=== PATIENT | female | born 1960 | race Two or more races ===

== ENCOUNTER → 2020-07-03 | Outpatient (CLI) | payer BC ==
[~2020-07-03] MED LIST: CHOL10003 PO; COLE625T12 PO; ENOX40SY4 SQ; LEVO88TA4 PO; METO25TA35 PO; OMEP-110 PO; WARF2TAB99 PO
[2020-07-03 12:07] LABS: BASOPHILS % (AUTO) 1 % (0-1); EOSINOPHILS % (AUTO) 0 % (1-7); LYMPHOCYTES % (AUTO) 13 % (22-44); MEAN CORPUSCULAR HEMOGLOBIN 28.8 pg (27.0-34.8); MEAN CORPUSCULAR HGB CONC 32.2 g/dL (32.4-35.8); MEAN PLATELET VOLUME 8.7 fL (7.4-10.4); MONOCYTES % (AUTO) 6 % (2-9); NEUTROPHILS % (AUTO) 81 % (42-75); PLATELET COUNT 384 x10^3/uL (130-400); RED BLOOD COUNT 3.59 x10^6/uL (3.82-5.3); RED CELL DISTRIBUTION WIDTH 15.1 % (9.6-15.2)
[2020-07-03 12:09] LABS: INTERNATIONAL NORMALIZED RATIO 1.87 (0.93-1.1); PROTHROMBIN TIME 19.8 Seconds (9.6-11.5)
[2020-07-03 12:11] LABS: ALANINE AMINOTRANSFERASE 11 U/L (12-78); ALBUMIN 2.3 g/dL (3.4-5.0); ANION GAP 4 mmol/L (5-15); CALCIUM 8.1 mg/dL (8.5-10.1); CHLORIDE 102 mmol/L (98-107); CREATININE 1.67 mg/dL (0.55-1.02)
[2020-07-03 12:13] LABS: ALKALINE PHOSPHATASE 122 U/L (45-117); BILIRUBIN,TOTAL 0.3 mg/dL (0.2-1.0); TOTAL PROTEIN 6.7 g/dL (6.4-8.2)
[2020-07-03 12:17] LABS: MD NO
== END | disposition home or self-care (01) ==
LOC: STAR 10:14
PROVIDERS: ATTEND Surgery
DX: Z01.818 Encounter for other preprocedural examination (principal); J98.4 Other disorders of lung; N19 Unspecified kidney failure; Z20.822 Contact with and (suspected) exposure to COVID-19; Z99.2 Dependence on renal dialysis
CPT/HCPCS: 36415; 71046; 80053; 85025; 85610; 85730; 93005; U0003; U0005

== ENCOUNTER 2020-07-09 08:30 | Day surgery (SDC) | payer BC ==
[~2020-07-09] VITALS: Ht 165.1 cm; Wt 54.4 kg
[2020-07-09] MEDS ORDERED: FENTANYL PF 100 MCG/2ML ONE ×2 (09:01→12:22)
[2020-07-09] MEDS ORDERED: MIDAZOLAM 1 MG/ML, 2ML ONE (09:02)
[2020-07-09 09:05] VITALS: BP 126/74
[2020-07-09] MEDS ORDERED: PROTAMINE SULFATE 10 MG/ML, 5ML ONE (09:29)
[2020-07-09] MEDS ORDERED: BUPIVACAINE/PF 0.5% ONE (09:29)
[2020-07-09] MEDS ORDERED: HEPARIN 1,000 UNITS/ML, 10ML ONE (09:29)
[2020-07-09] MEDS ORDERED: PAPAVERINE 30 MG/ML, 2ML ONE (09:29)
[2020-07-09] MEDS ORDERED: THROMBIN 20,000 UNIT VIAL TP ONE (09:29)
[2020-07-09] MEDS ORDERED: EPINEPHRINE 1 MG/ML, 1ML ONE (09:30)
[2020-07-09] MEDS ORDERED: SODIUM CHLORIDE 0.9% 1,000 ML IV SCH (09:30)
[2020-07-09] MEDS ORDERED: CHLORHEXIDINE 15 ML UDC PO ONE (09:30)
[2020-07-09] MEDS ORDERED: BACITRACIN 50,000 UNIT ONE (09:30)
[2020-07-09] MEDS ORDERED: PROMETHAZINE 25 MG/ML, 1ML IVPush PRN (10:00)
[2020-07-09] MEDS ORDERED: MEPERIDINE/PF 25MG/0.5ML IVPush PRN (10:00)
[2020-07-09] MEDS ORDERED: HYDROcodone/APAP 7.5-325MG/15ML UDC PO PRN (10:00)
[2020-07-09] MEDS ORDERED: ONDANSETRON 2MG/ML, 2ML IVPush PRN (10:00)
[2020-07-09] MEDS ORDERED: OXYcodone 5 MG/5 ML ORAL.SOL UDC PO PRN (10:00)
[2020-07-09] MEDS ORDERED: HYDROmorphone 1 MG/ML, 1ML INJ IVPush PRN (10:00)
[2020-07-09 10:03] LABS: ALANINE AMINOTRANSFERASE 12 U/L (12-78); ALBUMIN 2.3 g/dL (3.4-5.0); ANION GAP 5 mmol/L (5-15); CALCIUM 8.5 mg/dL (8.5-10.1); CHLORIDE 107 mmol/L (98-107)
[2020-07-09 10:04] LABS: INTERNATIONAL NORMALIZED RATIO 1.22 (0.93-1.1)
[2020-07-09 10:06] LABS: ALKALINE PHOSPHATASE 102 U/L (45-117); BILIRUBIN,TOTAL 0.4 mg/dL (0.2-1.0); TOTAL PROTEIN 6.7 g/dL (6.4-8.2)
[2020-07-09] MEDS ORDERED: EPHEDRINE 50 MG/ML, 1ML ONE (10:27)
[2020-07-09] MEDS ORDERED: ONDANSETRON 2MG/ML, 2ML ONE (10:27)
[2020-07-09] MEDS ORDERED: PROPOFOL 10 MG/ML, 20ML ONE (10:27)
[2020-07-09] MEDS ORDERED: DEXAMETHASONE 4 MG/ML, 1ML ONE (10:27)
[2020-07-09] MEDS ORDERED: CEFAZOLIN 1,000 MG ONE (10:27)
[2020-07-09] MEDS ORDERED: OXYcodone 5 MG/5 ML ORAL.SOL UDC ONE (12:22)
[2020-07-09] MEDS: FENTANYL PF 100 MCG/2ML IV PRN ×2 (12:32→12:37)
== END 2020-07-09 14:30 | disposition home or self-care (01) ==
LOC: OUT 08:30
PROVIDERS: ATTEND Surgery
DX: E11.22 Type 2 diabetes mellitus with diabetic chronic kidney disease (principal); I12.0 Hypertensive chronic kidney disease with stage 5 chronic kidney disease or end stage renal disease; N18.6 End stage renal disease; I48.91 Unspecified atrial fibrillation; Z79.01 Long term (current) use of anticoagulants; Z79.890 Hormone replacement therapy; Z79.899 Other long term (current) drug therapy; Z86.718 Personal history of other venous thrombosis and embolism; Z90.49 Acquired absence of other specified parts of digestive tract; Z99.2 Dependence on renal dialysis
CPT/HCPCS: 36415; 36830; 80053; 85610; 85730; C1768; J0171; J0690; J1100; J1644; J2250; J2405; J2704; J3010; J2720; J2440

== ENCOUNTER 2020-07-15 11:33 | Inpatient (IN) | payer BC ==
[~2020-07-15] VITALS: Ht 165.1 cm; Wt 50.0 kg
[2020-07-15 12:35] VITALS: BP 128/74
[2020-07-15 13:37] VITALS: BP 128/74
[2020-07-15 14:26] VITALS: BP 135/75
[2020-07-15] MEDS ORDERED: ACETAMINOPHEN 325 MG TABLET PO PRN (14:30)
[2020-07-15] MEDS ORDERED: ONDANSETRON 2MG/ML, 2ML IVPush PRN (14:30)
[2020-07-15 15:01] LABS: BASOPHILS % (AUTO) 1 % (0-1); EOSINOPHILS % (AUTO) 1 % (1-7); LYMPHOCYTES % (AUTO) 19 % (22-44); MEAN CORPUSCULAR HEMOGLOBIN 28.5 pg (27.0-34.8); MEAN CORPUSCULAR HGB CONC 32.7 g/dL (32.4-35.8); MEAN PLATELET VOLUME 8.4 fL (7.4-10.4); MONOCYTES % (AUTO) 6 % (2-9); NEUTROPHILS % (AUTO) 74 % (42-75); PLATELET COUNT 368 x10^3/uL (130-400); RED BLOOD COUNT 2.91 x10^6/uL (3.82-5.3); RED CELL DISTRIBUTION WIDTH 14.9 % (9.6-15.2)
[2020-07-15 15:13] LABS: ALANINE AMINOTRANSFERASE 12 U/L (12-78); ALBUMIN 1.9 g/dL (3.4-5.0); ANION GAP 4 mmol/L (5-15); CALCIUM 7.4 mg/dL (8.5-10.1); CHLORIDE 105 mmol/L (98-107)
[2020-07-15 15:15] LABS: ALKALINE PHOSPHATASE 91 U/L (45-117); BILIRUBIN,TOTAL 0.2 mg/dL (0.2-1.0); CREATININE 1.67 mg/dL (0.55-1.02)
[2020-07-15 15:18] LABS: INTERNATIONAL NORMALIZED RATIO 1.72 (0.93-1.1); PROTHROMBIN TIME 18.2 Seconds (9.6-11.5)
[2020-07-15] MEDS ORDERED: PHARMACY INSTRUCTION MC PRN (16:00)
[2020-07-15] MEDS ORDERED: DEXTROSE 50%, 50ML SYRINGE IVPush PRN (16:30)
[2020-07-15] MEDS ORDERED: DEXTROSE 4 GM TAB.CHEW PO PRN (16:30)
[2020-07-15] MEDS ORDERED: GLUCAGON 1 MG IM PRN (16:30)
[2020-07-15 16:42] LABS: CALCIUM 7.4 mg/dL (8.5-10.1)
[2020-07-15] MEDS ORDERED: HEPARIN 5,000 UNITS/ML, 1ML IV ONE (17:00)
[2020-07-15] MEDS: HEPARIN 25,000 UNITS/250ML PMX 250 ML IV PRN (17:27)
[2020-07-15 19:26] VITALS: BP 131/68
[2020-07-15] MEDS: SODIUM CHLORIDE FLUSH 10ML SYR IVF SCH (20:56)
[2020-07-15] MEDS: COLESEVELAM 625 MG TABLET PO SCH (21:00)
[2020-07-15] MEDS: INSULIN LISPRO 100 UNITS/ML, PEN SQ-INSULIN SCH (21:51)
[2020-07-16] MEDS: HEPARIN 5,000 UNITS/ML, 1ML IV PRN (00:03)
[2020-07-16 00:06] VITALS: BP 148/80
[2020-07-16 03:24] LABS: HCG UR SG 1.018 (1.003-1.030)
[2020-07-16] MEDS: LEVOTHYROXINE 88 MCG TABLET PO SCH (05:59)
[2020-07-16] MEDS: INSULIN LISPRO 100 UNITS/ML, PEN SQ-INSULIN SCH ×4 (06:01→21:38)
[2020-07-16 06:51] LABS: INTERNATIONAL NORMALIZED RATIO 1.56 (0.93-1.1); PROTHROMBIN TIME 16.5 Seconds (9.6-11.5)
[2020-07-16] MEDS: METOPROLOL TARTRATE 25 MG TAB PO SCH (08:23)
[2020-07-16] MEDS: COLESEVELAM 625 MG TABLET PO SCH ×3 (08:23→21:00)
[2020-07-16] MEDS: CHOLECALCIFEROL 1,000 UNIT TABLET PO SCH (08:23)
[2020-07-16 08:31] VITALS: BP 112/64
[2020-07-16 09:00] LABS: BASOPHILS % (AUTO) 1 % (0-1); EOSINOPHILS % (AUTO) 1 % (1-7); LYMPHOCYTES % (AUTO) 17 % (22-44); MEAN CORPUSCULAR HEMOGLOBIN 28.9 pg (27.0-34.8); MEAN CORPUSCULAR HGB CONC 32.7 g/dL (32.4-35.8); MEAN PLATELET VOLUME 8.7 fL (7.4-10.4); MONOCYTES % (AUTO) 6 % (2-9); NEUTROPHILS % (AUTO) 76 % (42-75); PLATELET COUNT 388 x10^3/uL (130-400); RED BLOOD COUNT 2.89 x10^6/uL (3.82-5.3); RED CELL DISTRIBUTION WIDTH 14.6 % (9.6-15.2)
[2020-07-16] MEDS: SODIUM CHLORIDE FLUSH 10ML SYR IVF SCH ×2 (09:00→21:00)
[2020-07-16 09:03] LABS: ALBUMIN 1.8 g/dL (3.4-5.0); ANION GAP 6 mmol/L (5-15); CALCIUM 7.7 mg/dL (8.5-10.1); CHLORIDE 108 mmol/L (98-107); CREATININE 1.86 mg/dL (0.55-1.02)
[2020-07-16 10:06] LABS: <PLATELET ESTIMATE> ADEQUATE; <PLT MORPHOLOGY> NORMAL PLT MORPH; <RBC MORPHOLOGY> NORMAL
[2020-07-16] MEDS ORDERED: BUPIVACAINE/PF 0.5% ONE (10:38)
[2020-07-16] MEDS ORDERED: EPINEPHRINE 1 MG/ML, 1ML ONE (10:39)
[2020-07-16] MEDS ORDERED: THROMBIN (RECOMBINANT) 5,000 UNIT VIAL TP ONE (10:39)
[2020-07-16] MEDS ORDERED: PAPAVERINE 30 MG/ML, 2ML ONE (10:39)
[2020-07-16] MEDS ORDERED: HEPARIN 1,000 UNITS/ML, 10ML ONE (10:39)
[2020-07-16] MEDS ORDERED: CHLORHEXIDINE 15 ML UDC ONE (10:59)
[2020-07-16] MEDS ORDERED: CHLORHEXIDINE 15 ML UDC PO ONE (11:30)
[2020-07-16] MEDS ORDERED: DARBEPOETIN 60 MCG/ML SQ SCH (12:00)
[2020-07-16] MEDS ORDERED: FENTANYL PF 100 MCG/2ML ONE (12:07)
[2020-07-16] MEDS ORDERED: VISIPAQUE 270 MG/ML, 50ML BOTTLE IV ONE (13:06)
[2020-07-16] MEDS ORDERED: HYDROmorphone 1 MG/ML, 1ML INJ ONE (13:50)
[2020-07-16] MEDS ORDERED: PROMETHAZINE 25 MG/ML, 1ML IVPush PRN (14:00)
[2020-07-16] MEDS ORDERED: HALOPERIDOL 5 MG/ML IV PRN (14:00)
[2020-07-16] MEDS ORDERED: FENTANYL PF 100 MCG/2ML IV PRN (14:00)
[2020-07-16] MEDS ORDERED: METOPROLOL 1 MG/ML, 5ML IV PRN (14:00)
[2020-07-16] MEDS ORDERED: LABETALOL 5MG/ML, 20ML IV PRN (14:00)
[2020-07-16] MEDS ORDERED: DIAZEPAM 5 MG/ML, 2ML IVPush PRN (14:00)
[2020-07-16] MEDS ORDERED: EPHEDRINE 50 MG/ML, 1ML IVPush PRN (14:00)
[2020-07-16] MEDS ORDERED: OXYcodone 5 MG/5 ML ORAL.SOL UDC PO PRN (14:00)
[2020-07-16] MEDS ORDERED: hydrALAzine 20 MG/ML, 1ML IV PRN (14:00)
[2020-07-16] MEDS ORDERED: HYDROmorphone 1 MG/ML, 1ML INJ IVPush PRN (14:00)
[2020-07-16] MEDS ORDERED: METOCLOPRAMIDE 5 MG/ML, 2ML IVPush PRN (14:00)
[2020-07-16 15:25] VITALS: BP 95/59
[2020-07-16] MEDS ORDERED: ARANESP 40 MCG/ML **ESRD SQ SCH (17:00)
[2020-07-16] MEDS: HEPARIN 25,000 UNITS/250ML PMX 250 ML IV PRN (17:07)
[2020-07-16 19:38] VITALS: BP 104/60
[2020-07-17] MEDS: HEPARIN 5,000 UNITS/ML, 1ML IV PRN ×2 (00:24→07:20)
[2020-07-17 00:43] VITALS: BP 94/58
[2020-07-17] MEDS: HEPARIN 25,000 UNITS/250ML PMX 250 ML IV PRN ×2 (03:18→07:20)
[2020-07-17 03:35] VITALS: BP 106/65
[2020-07-17] MEDS: LEVOTHYROXINE 88 MCG TABLET PO SCH (06:09)
[2020-07-17] MEDS: INSULIN LISPRO 100 UNITS/ML, PEN SQ-INSULIN SCH ×4 (06:09→22:05)
[2020-07-17 07:05] VITALS: BP 95/59
[2020-07-17 07:26] LABS: BASOPHILS % (AUTO) 1 % (0-1); EOSINOPHILS % (AUTO) 0 % (1-7); LYMPHOCYTES % (AUTO) 15 % (22-44); MEAN CORPUSCULAR HEMOGLOBIN 28.2 pg (27.0-34.8); MEAN CORPUSCULAR HGB CONC 31.6 g/dL (32.4-35.8); MEAN PLATELET VOLUME 8.9 fL (7.4-10.4); MONOCYTES % (AUTO) 5 % (2-9); NEUTROPHILS % (AUTO) 80 % (42-75); PLATELET COUNT 374 x10^3/uL (130-400); RED CELL DISTRIBUTION WIDTH 14.9 % (9.6-15.2)
[2020-07-17 07:37] LABS: ANION GAP 6 mmol/L (5-15); CALCIUM 7.7 mg/dL (8.5-10.1); CHLORIDE 107 mmol/L (98-107); CREATININE 2.64 mg/dL (0.55-1.02)
[2020-07-17] MEDS: METOPROLOL TARTRATE 25 MG TAB PO SCH (09:00)
[2020-07-17] MEDS: SODIUM CHLORIDE FLUSH 10ML SYR IVF SCH ×2 (09:00→21:17)
[2020-07-17] MEDS: CHOLECALCIFEROL 1,000 UNIT TABLET PO SCH (09:29)
[2020-07-17] MEDS: COLESEVELAM 625 MG TABLET PO SCH ×2 (09:29→21:17)
[2020-07-17] MEDS ORDERED: PHARMACY INSTRUCTION MC ONE (13:00)
[2020-07-17] MEDS ORDERED: HEPARIN 25,000 UNITS/250ML PMX 250 ML IV PRN (13:00)
[2020-07-17] MEDS ORDERED: HEPARIN 5,000 UNITS/ML, 1ML IV PRN (13:00)
[2020-07-17 14:00] VITALS: BP 101/65
[2020-07-17 19:03] VITALS: BP 102/67
[2020-07-17] MEDS: APIXABAN 5 MG TABLET PO SCH (21:17)
[2020-07-18 00:31] VITALS: BP 102/63
[2020-07-18] MEDS: LEVOTHYROXINE 88 MCG TABLET PO SCH (05:49)
[2020-07-18 06:56] VITALS: BP 93/54
[2020-07-18] MEDS: INSULIN LISPRO 100 UNITS/ML, PEN SQ-INSULIN SCH ×3 (07:00→16:00)
[2020-07-18 07:08] LABS: BASOPHILS % (AUTO) 1 % (0-1); EOSINOPHILS % (AUTO) 1 % (1-7); LYMPHOCYTES % (AUTO) 13 % (22-44); MEAN CORPUSCULAR HEMOGLOBIN 28.5 pg (27.0-34.8); MEAN CORPUSCULAR HGB CONC 32.3 g/dL (32.4-35.8); MONOCYTES % (AUTO) 6 % (2-9); NEUTROPHILS % (AUTO) 79 % (42-75); PLATELET COUNT 339 x10^3/uL (130-400); RED BLOOD COUNT 2.55 x10^6/uL (3.82-5.3); RED CELL DISTRIBUTION WIDTH 15.3 % (9.6-15.2)
[2020-07-18 07:20] LABS: ALBUMIN 1.8 g/dL (3.4-5.0); ANION GAP 9 mmol/L (5-15); CALCIUM 7.7 mg/dL (8.5-10.1); CHLORIDE 103 mmol/L (98-107)
[2020-07-18 07:25] LABS: ALANINE AMINOTRANSFERASE 7 U/L (12-78); ALKALINE PHOSPHATASE 161 U/L (45-117); BILIRUBIN,TOTAL 0.3 mg/dL (0.2-1.0); CREATININE 1.77 mg/dL (0.55-1.02); TOTAL PROTEIN 5.7 g/dL (6.4-8.2)
[2020-07-18] MEDS: SODIUM CHLORIDE FLUSH 10ML SYR IVF SCH (09:00)
[2020-07-18 11:51] VITALS: BP 97/60
[2020-07-18] MEDS: COLESEVELAM 625 MG TABLET PO SCH (12:08)
[2020-07-18] MEDS: APIXABAN 5 MG TABLET PO SCH ×2 (12:09→18:23)
[2020-07-18] MEDS: METOPROLOL TARTRATE 25 MG TAB PO SCH (12:09)
[2020-07-18] MEDS: CHOLECALCIFEROL 1,000 UNIT TABLET PO SCH (12:09)
[2020-07-18 12:38] VITALS: BP 85/51
[2020-07-18] MEDS ORDERED: APIX5TAB PO ×3 (17:33→18:57)
[2020-07-24] MEDS ORDERED: APIXABAN 5 MG TABLET PO SCH (21:00)
== END 2020-07-18 19:06 | disposition home or self-care (01) | DRG 252 ==
LOC: 4NE 11:33
PROVIDERS: ADMIT Internal Medicine; ATTEND Internal Medicine
PROC: 05C80ZZ Extirpation of Matter from Left Axillary Vein, Open Approach (ICD-10-PCS; 2020-07-16)
PROC: B51N1ZZ Fluoroscopy of Left Upper Extremity Veins using Low Osmolar Contrast (ICD-10-PCS; 2020-07-16)
PROC: 03C60ZZ Extirpation of Matter from Left Axillary Artery, Open Approach (ICD-10-PCS; principal; 2020-07-16 11:30)
DX: T82.868A Thrombosis due to vascular prosthetic devices, implants and grafts, initial encounter (principal); N18.6 End stage renal disease; I12.0 Hypertensive chronic kidney disease with stage 5 chronic kidney disease or end stage renal disease; I48.20 Chronic atrial fibrillation, unspecified; D68.69 Other thrombophilia; Z20.822 Contact with and (suspected) exposure to COVID-19; D63.8 Anemia in other chronic diseases classified elsewhere; E03.9 Hypothyroidism, unspecified; Y83.8 Other surgical procedures as the cause of abnormal reaction of the patient, or of later complication, without mention of misadventure at the time of the procedure; E11.22 Type 2 diabetes mellitus with diabetic chronic kidney disease; Y92.89 Other specified places as the place of occurrence of the external cause; Z86.718 Personal history of other venous thrombosis and embolism; Z90.49 Acquired absence of other specified parts of digestive tract; Z95.828 Presence of other vascular implants and grafts; Z99.2 Dependence on renal dialysis; Z79.01 Long term (current) use of anticoagulants
CPT/HCPCS: 36415; S0020; 75710; 80048; 80053; 80069; 81025; 82306; 82310; 82330; 82728; 82962; 83540; 83550; 83735; 83970; 84100; 85025; 85520; 85610; 85730; 86704; 86706; 87340; 87635; 93005; G0378; J0171; J0882; J1170; J1644; J2405; J3010; Q9966; J1815; J2440